=== PATIENT | male | born 1970 | race Caucasian/White ===

== ENCOUNTER 2019-07-21 16:30 | Inpatient (IN) | payer MEDICAID ==
[~2019-07-21] VITALS: Ht 175.3 cm; Wt 145.6 kg
[2019-07-21 17:06] VITALS: BP_SYST 163
--- NOTE | 2019-07-21 17:08 | NUR ---
Patient triaged and placed in waiting room. VSS and patient appears in no acute distress at this time. Accompanied by family , awaiting available bed, ER on Alert 2, unable to get a room at this time, pt ambulatory and MD notified of need for MSE, pt states he has wound on leg for one month and he has not seen a doctor, dressing placed on leg by EMT, afebrile.
[2019-07-21 18:24] LABS: BASOPHILS # (AUTO) 0.1 K/uL (0.0-0.2); BASOPHILS % (AUTO) 1.1 % (0.0-2.0); EOSINOPHILS # (AUTO) 0.2 K/uL (0.0-0.4); HEMATOCRIT 43.3 % (36-54); HEMOGLOBIN 14.5 g/dL (14.0-18.0); LYMPHOCYTES # (AUTO) 2.4 K/uL (1.0-5.5); LYMPHOCYTES % (AUTO) 20.6 % (20.5-51.5); MEAN CORPUSCULAR HEMOGLOBIN 28 pg (27-31); MEAN CORPUSCULAR HGB CONC 33 % (32-36); MEAN CORPUSCULAR VOLUME 84 fL (79.0-98.0); MONOCYTES # (AUTO) 0.7 K/uL (0.0-1.0); MONOCYTES % (AUTO) 6.4 % (1.7-9.3); NEUTROPHILS # (AUTO) 8.1 K/uL (1.8-7.7); NEUTROPHILS % (AUTO) 69.9 % (40.0-70.0); PLATELET COUNT (AUTO) 389 K/uL (130-430); RED BLOOD CELL COUNT(AUTO) 5.15 MIL/uL (4.2-6.2); RED CELL DISTRIBUTION WIDTH 13.8 % (9.0-15.0); WHITE BLOOD COUNT (AUTO) 11.6 K/uL (4.8-10.8)
[2019-07-21 18:35] LABS: CALCIUM 8.7 mg/dL (8.4-11.0); CREATININE 1.29 mg/dL (0.55-1.30); POTASSIUM 3.8 mmol/L (3.5-5.1)
[2019-07-21 18:42] LABS: TOTAL BILIRUBIN 0.6 mg/dL (0.0-1.0)
--- NOTE | 2019-07-21 19:10 | NUR ---
Labs ordered for patient, unable to get room at this time
--- NOTE | 2019-07-21 20:25 | NUR ---
Pt on stable condition, report given to David APODACA
--- NOTE | 2019-07-21 22:32 | NUR ---
Patient to ER bed 8 to gown for evaluation. Side rails up. Report given to LIZZY APODACA.
--- NOTE | 2019-07-21 22:40 | NUR ---
Pt awake, alert, oriented x4. Pt brought in by family. Pt chief complaint of wound to R lower leg. Pt has open wound with green/white drainage and black necrotic looking tissue approx 6"x8" on anterior portion of R tibia area. Pt states that he was getting onto a tour bus in [place] approx 1 month ago when he got a hematoma that filled with fluid. The patient states that the hematoma ruptured and tissue started falling out. Pt states that he tried to clean the wound with peroxide. Pt states that he did not follow up because he does not have insurance, nor a PMD. Pt states that he has no pain at this time. Wound has foul odor and drainage.
--- NOTE | 2019-07-21 22:43 | NUR ---
ER at bedside examining patient.
[2019-07-21] MEDS ORDERED: cefTRIAXone 1 GM in D5W 50 ML IV ONE (23:00)
[2019-07-21] MEDS ORDERED: cefTRIAXone 1 GM IVPB PREMIX 50 ML IV ONE (23:35)
--- NOTE | 2019-07-22 00:27 | NUR ---
Pt resting in ED bed comfortably. No acute s/s of distress. Pt denies pain at this time.
--- NOTE | 2019-07-22 01:15 | NUR ---
Pt resting in Bed. No acute distress noted.
[2019-07-22] MEDS ORDERED: ACETAMINOPHEN 325 MG TABLET PO PRN (01:45)
--- NOTE | 2019-07-22 02:30 | NUR ---
Patient will be admitted to care of . Admitted to Med/Surg unit. Will go to room 119B. Belongings list completed. Complete and up to date summary report printed. SBAR report to be given at bedside with opportunity for questions.
--- NOTE | 2019-07-22 02:54 | NUR ---
Transfer to [facility]. IV present no sign or symptom of infiltration.
--- NOTE | 2019-07-22 03:35 | NUR ---
ADMISSION NOTE Received patient from ER via eliud, received report from LIZZY APODACA. Patient admitted with diagnosis of RIGHT LEG ULCER. Patient oriented to hospital routine, call light, toileting and safety-patient verbalized understanding.
[2019-07-22 03:37] VITALS: BP_SYST 155
[2019-07-22] MEDS ORDERED: LISI40TA4 PO (03:46)
--- NOTE | 2019-07-22 04:32 | NUR ---
CONSULTATION PAGED/CALLED Reason for Consultation: INFECTED LEG ULCER Person Who was Notified: BLANKA Consulting Physician: DR. RECINOS Ordering Physician: DR. BENOIT
--- NOTE | 2019-07-22 05:00 | NUR ---
PT MEDICATED WITH DILUADID 8MG FOR ROUTINE PAIN MEDICINE . PT C/O PAIN 10/05 WILL MONITOR PAIN LEVEL . PT SLEEP BETTER THROUGH THE THE NIGHT .
--- NOTE | 2019-07-22 05:00 | NUR ---
PT SLEPT WELL THROUGH THE NIGHT . PT CONTINUED ON ANTIBIOTIC ,PT WILL TAKE A SHOWER AFTER IV MED .
--- NOTE | 2019-07-22 05:33 | NUR ---
CONSULTATION PAGED/CALLED Reason for Consultation: INFECTED LEG ULCER Person Who was Notified: GAVIN Consulting Physician: PATRICIA BEAL Ordering Physician: DR. BENOIT
[2019-07-22] MEDS: PIPERACILLIN/TAZO 3.375 GM in NS 50 ML IV SCH ×3 (06:27→17:19)
[2019-07-22] MEDS ORDERED: PIPERACILLIN/TAZOBACTAM 3.375 GM/VIAL (ZOSYN) IV ONE (06:31)
--- NOTE | 2019-07-22 06:57 | NUR ---
CLOSING NOTES PATIENT RESTING COMFORTABLY IN BED, AWAKE AND ALERT. NO SOB, NO ACUTE DISTRESS, NO COMPLAINTS OF PAIN AT THIS TIME. BED IS LOCKED, LOWEST POSITION, 2X SIDE RAILS UP, BED ALARM IS ON. CALL LIGHT IS WITHIN REACH. FALL AND SAFETY PRECAUTIONS MAINTAINED. ALL NEEDS HAVE BEEN MET DURING THIS SHIFT. WILL ENDORSE CARE TO ONCOMING DAYSHIFT NURSE.
[2019-07-22 07:31] VITALS: BP_SYST 154
--- NOTE | 2019-07-22 10:00 | NUR ---
MD rounds/wound care Seen and examined by Dr. Greene explained procedure debridement of right leg tomorrow, right leg with big necrotic wound with drainage foul smell,wash with saline pat/dry ,covered with oil emulsion dressing then abdominal pads wrap with Kerlix, kept the legs elevated pillow, patient denies any pain , discomfort comes only if he walk.
[2019-07-22] MEDS ORDERED: LISINOPRIL 20 MG TABLET PO ONE (10:45)
[2019-07-22] MEDS ORDERED: HYDROcodone/ACETAMIN 5-325 MG TAB (NORCO/ VICODIN) PO PRN (12:00)
[2019-07-22] MEDS ORDERED: HYDROcodone/ACETAMIN 10-325 MG TAB PO PRN (12:00)
[2019-07-22] MEDS ORDERED: DEXTROSE 50% JECT 50 ML DISP.SYRIN IVP PRN (12:15)
[2019-07-22] MEDS ORDERED: INSULIN REGULAR, HUMAN 100 UNITS/ML, 10 ML VIAL (humuLIN R) SUBCUT PRN (12:15)
[2019-07-22 12:29] VITALS: BP_SYST 166
--- NOTE | 2019-07-22 12:30 | NUR ---
Due antibiotic completed with out adverse reaction, right leg dressing intact, kept elevated to pillow.
[2019-07-22 13:11] LABS: PROTHROMBIN TIME 10.2 SECS (9.5-12.5)
[2019-07-22 16:21] VITALS: BP_SYST 139
--- NOTE | 2019-07-22 18:11 | NUR ---
Right leg kept elevated n dressing intact due antibiotic given, education given regarding surgery in am , wound care, antibiotic therapy, pain management, PICC LINE verbalized understanding.
[2019-07-22 19:11] LABS: BILIRUBIN,URINE NEGATIVE (NEGATIVE); BLOOD, URINE 1+ (NEGATIVE); CLARITY/URINE CLEAR (CLEAR); COLOR,URINE YELLOW (YELLOW); GLUCOSE,URINE NEGATIVE (NEGATIVE); KETONES,URINE NEGATIVE (NEGATIVE); LEUKOCYTE ESTERASE ,URINE NEGATIVE (NEGATIVE); NITRITE, URINE NEGATIVE (NEGATIVE); PROTEIN URINE NEGATIVE (NEGATIVE)
[2019-07-22 19:20] LABS: BACTERIA,URINE FEW /HPF (None Seen); MUCUS,URINE None Seen /LPF (None Seen); WBC,URINE 0-3 /HPF (0-3)
[2019-07-22 20:00] VITALS: BP_SYST 135
[2019-07-22] MEDS: LINEZOLID 300 ML IV SCH (21:09)
--- NOTE | 2019-07-22 22:00 | NUR ---
pt recieved awake alert and oriented x3 . skin warm dry and wound on the right leg intact wound drsg changes pt on antibiotics . pt stanted that his leg does not hurt him .pt recieved antibiotics , pt wanted to take a shower tonight ,but because pt had to take antibiotics ,he put it off till the morning . pt will be going for debridement . pt already signed his consent . pt will be npo after midnight . .
--- NOTE | 2019-07-22 23:45 | NUR ---
PT MEDICATED WITH DILUADID 4MG IVP FOR PAIN 10/10 . PATIENT WILL CONTINUE TO BE MONITORED FORPAIN .
--- NOTE | 2019-07-23 | NUR ---
PT RECIEVED SOME SNACKS BEFORE MIDNIGHT . PT IS NPO NOW ,FROM MIDNIGHTFOR SURGERY TOMORROW .WILL CONTINUE TO BE NPO AFTER NIDNIGHT .
[2019-07-23] MEDS: PIPERACILLIN/TAZO 3.375 GM in NS 50 ML IV SCH ×4 (00:52→23:09)
[2019-07-23 02:18] VITALS: BP_SYST 106
[2019-07-23 08:00] VITALS: BP_SYST 124
[2019-07-23 08:15] LABS: BASOPHILS # (AUTO) 0.1 K/uL (0.0-0.2); EOSINOPHILS # (AUTO) 0.3 K/uL (0.0-0.4); EOSINOPHILS % (AUTO) 2.8 % (0.0-4.0); HEMATOCRIT 39.5 % (36-54); HEMOGLOBIN 13.4 g/dL (14.0-18.0); LYMPHOCYTES # (AUTO) 2.1 K/uL (1.0-5.5); LYMPHOCYTES % (AUTO) 23.7 % (20.5-51.5); MEAN CORPUSCULAR HEMOGLOBIN 28 pg (27-31); MEAN CORPUSCULAR HGB CONC 34 % (32-36); MEAN CORPUSCULAR VOLUME 84 fL (79.0-98.0); MONOCYTES # (AUTO) 0.8 K/uL (0.0-1.0); MONOCYTES % (AUTO) 9.5 % (1.7-9.3); NEUTROPHILS # (AUTO) 5.6 K/uL (1.8-7.7); PLATELET COUNT (AUTO) 380 K/uL (130-430); RED BLOOD CELL COUNT(AUTO) 4.72 MIL/uL (4.2-6.2); RED CELL DISTRIBUTION WIDTH 13.6 % (9.0-15.0); WHITE BLOOD COUNT (AUTO) 8.9 K/uL (4.8-10.8)
[2019-07-23] MEDS: LINEZOLID 300 ML IV SCH ×2 (08:37→21:38)
[2019-07-23] MEDS: LISINOPRIL 20 MG TABLET PO SCH (08:59)
[2019-07-23 09:01] LABS: ALBUMIN 2.6 g/dL (3.4-4.8); CALCIUM 8.7 mg/dL (8.4-11.0); CREATININE 1.18 mg/dL (0.55-1.30); FREE T4 (FREE THYROXINE) 1.2 ng/dl (0.8-1.5); THYROID STIMULATING HORMONE 3.38 uIu/mL (0.36-3.74)
[2019-07-23 12:00] VITALS: BP_SYST 128
[2019-07-23] MEDS ORDERED: ONDANSETRON HCL 4 MG/2 ML VIAL IVP PRN (13:30)
[2019-07-23] MEDS ORDERED: fentaNYL CITRATE/PF 100 MCG/2 ML AMP IVP PRN ×2 (13:30)
--- NOTE | 2019-07-23 13:51 | NUR ---
OR: Patient is picked up to OR via a bed with stable condition. Wound Vac machine brought with the patient.
[2019-07-23] MEDS ORDERED: BUPIVACAINE /DEX PF 0.75% SPINAL 2 ML AMP INJ ONE (15:20)
[2019-07-23] MEDS ORDERED: NS IRRIG SOLN 1000 ML IR ONE (15:20)
[2019-07-23] MEDS ORDERED: LR 1,000 ML IV.SOLN IV ONE (15:20)
[2019-07-23] MEDS ORDERED: MIDAZOLAM HCL 5 MG/ML VIAL (VERSED) IV ONE (15:20)
[2019-07-23 16:00] VITALS: BP_SYST 121
--- NOTE | 2019-07-23 16:00 | NUR ---
Back from OR: Patient is back from OR ,S/P right leg wound debridement with wound Vac. He had Epidural block. He is alert, oriented x 4, denies pain at this time, feeling numb form waist down. Will continue monitor.
--- NOTE | 2019-07-23 16:40 | NUR ---
WOUND EVALUATION: Wound Consult received from Dr. Gurrola. Thank you, Dr. Gurrola, for the consult. Patient received in a Nay Bed with a mattress, awake, alert, and oriented. Patient is unable to turn independently. Gustavo Score is a 19. Past Medical History: Hypertension, Morbid Obesity, Obstructive Sleep Apnea. Patient reported that when he was in [place] about 1 month ago, he slipped and fell directly on his bilateral shins. Upon presentation to the ER, he was found to have large infected open hematoma. Recent Labs: WBC 8.9 (11.6 on admission), RBC 4.72, hemoglobin 13.4, hematocrit 39.5, sodium 135, BUN 15, creatinine 1.18, GFR 69, glucose 108, POC glucose 118, albumin 2.6. Microbiology: Blood culture results 2 in progress. Wound culture results in progress. MRSA screen results in progress. Intrinsic factors that delay wound healing: Hypoalbuminemia, Obstructive Sleep Apnea. Extrinsic factors that delay wound healing: Decreased mobility. Wound Assessment: 1. Right Medial Calf: Necrotic ulcer, present on admission. Wound is status post irrigation and debridement by Dr. Greene today, with Wound VAC placement. Wound VAC not removed for assessment secondary to doing so would decrease wound temperature and retard wound healing rate. Wound VAC is currently running at 125 mmHg, continuous. No leakage observed. Recommend: Cleanse wound with normal saline. Apply SurePrep to ari-wound. Apply Silver Granufoam VAC dressing to wound bed. Cover with VAC drape. Cut a small hole into Silver Granufoam dressing and attach suction attachment, connect to VAC canister. Run wound VAC at 125 mmHg, continuous. Perform wound care and change VAC q M/W/, and as needed for dressing soiling or dislodgement. Next VAC dressing change will be Saturday. Also recommend: Encourage and assist patient as needed with repositioning every 2 hours with pillow support and off-load pressure areas with pillows for pressure re-distribution. Offload, elevate and float bilateral heels with pillows. Perform skin care and monitor skin integrity Q shift.
--- NOTE | 2019-07-23 18:44 | NUR ---
Closing note: Patient is stable after surgery, able to move both legs but still feeling numb. Tolerating Regular diet well , no N/V. Right leg with wound Vac is functioning well, no drainage at this time.
--- NOTE | 2019-07-23 19:30 | NUR ---
Received report from the day RN. initial assessment done. Pt. resting with and visitors @ the bedside. Provided pt. and family privacy.
[2019-07-23 20:00] VITALS: BP_SYST 122
--- NOTE | 2019-07-23 20:00 | NUR ---
Pt. in bed resting, alert, awake, oriented x 4, able to verbalize needs and follows commands. Pt. cooperative and understands health instructions. Pt. s/p OR Surgery of the Right lower extremity Debridement. Pt. with wound @ the anterior part of the Right lower leg attached to the wound vac. continuously @ 125 mmHg. Pt. able to tolerate the wound vac machine and denies pain when assessed. Pt. verbalized that there's no pain felt down there. Pt. calm, pleasant and follows safety precautions to prevent falls. Pt. encouraged to use call-light @ the bedside. @ the bedside will stay the whole night to watch and assist her . Pt. cooperative to [place] [facility].
--- NOTE | 2019-07-23 22:00 | NUR ---
Due meds. given - see Emar. Pt. cooperative with his medications. Provided pt. and family health teachings on the use and benefits of the med. given.
--- NOTE | 2019-07-23 23:00 | NUR ---
Accucheck taken and the result is = 89 , Pt. given snacks and juices @ this time. Pt. breathing regular and unlabored and denies pain and that the Right lower leg is not hurting. Pt. provided assistance with repositioning or turn slightly to the sides for comfort with pillows supporting back, arms and underneath the legs. Pt. reenforced the blankets and keep warm. HOB UP @ 55 degrees angle and siderails up x 2-3 for safety. Call-light within reach @ the bedside.
--- NOTE | 2019-07-24 00:30 | NUR ---
Pt. calm and resting with @ the bedside. Medication IV antibiotic due @ midnight given. BURAK Piccline keep patent and intact. No s/s of IV infiltration.
[2019-07-24 01:25] VITALS: BP_SYST 127
--- NOTE | 2019-07-24 02:00 | NUR ---
Pt. sleeping calmly, awakens intermittently and assisted with toileting. Able to void using the urinal with good sufficient output of yellow darinel urine. Face and body calm. No s/s of facial grimacing. Pt. denies pain. Keep pt. clean, dry and empty the urinals each time pt. voids. Pt. returned to sleep.
--- NOTE | 2019-07-24 02:00 | NUR ---
Pt. asleep, @ the bedside sleeping @ the sofa chair. Maintained a safe, quiet and dimlighted room environment.
--- NOTE | 2019-07-24 06:30 | NUR ---
Due meds. given. Accucheck taken with result of = 89. Pt. is not feeling hungry but will wait for the mealtray. Pt. provided bedside am care. PAULIE Rubio and assisted pt. with adl's. Keep pt. safe , warm and wound vac continuously running @ 125 mmHg.
[2019-07-24] MEDS: PIPERACILLIN/TAZO 3.375 GM in NS 50 ML IV SCH ×4 (06:40→23:00)
[2019-07-24 08:00] VITALS: BP_SYST 128
--- NOTE | 2019-07-24 08:00 | NUR ---
received awake and a/o x 3 and no c/o discomfort.vss.wound vac and drsg to rt leg dry and intact and small amt drainage noted.up amb to br on own.picc line patent to rt arm continue to monitor and call santiago in place
[2019-07-24] MEDS: LINEZOLID 300 ML IV SCH ×2 (09:02→20:57)
[2019-07-24] MEDS: LISINOPRIL 20 MG TABLET PO SCH (09:03)
--- NOTE | 2019-07-24 10:47 | NUR ---
Nutrition Update Gustavo Scale 17 noted. Pt admitted for infected leg ulcer. Diet: regular BMI: 47.4 kg/m2 RD to follow per nutrition care standards.
[2019-07-24 12:00] VITALS: BP_SYST 125
--- NOTE | 2019-07-24 12:00 | NUR ---
PT REMAINS IN C/O DISCOMFORT VSSUP AMB TO BR AND WOUND VAC INTACT.CONTINUE TO MONITOR.
--- NOTE | 2019-07-24 14:35 | NUR ---
Nutrition Assessment (short note d/t high patient load) A - RD reviewed pertinent nutrition-related info via EMR (physician notes/nursing notes/labs/meds/nursing care trends/care activity). Admission Dx: Infected leg ulcer Pt also found w/ mild protein malnutrition, R leg necrotic ulcer w/ possible necrotizing fasciitis down to the bone s/p debridement 07/23/19 per physician notes PMH: HTN, AMY, morbid obesity per physician notes Current Diet Order/Nutrition Support: Regular x1 day Ht: 69"/5'9" Wt: 321#/146 kg IBW: 160#/73 kg %IBW: 200% UBW: 290#/132# %UBW: 111% BMI: 47.4 kg/m2 (obesity class III) Subjective Info: Nutrition Consult received for R leg wound. Pt also seen high risk d/t BMI greater than 40 kg/m2 and Dx of malnutrition. Pt seen resting in bed w/ wound vac to pt's R leg wound. Sanitary Plumber note 07/23/19 reviewed. Pt reported good appetite, generally eating 75% of meals. Per EMR records, 92% average PO intakes x6 meals. Pt reported use of MVI, krill oil, VIT E, D, B complex, ubiquinol, and glucosamine. Anthropometrics verified. Pt appeared to have excessive subcutaneous adipose tissue evenly distributed throughout body. Pt attested to wt gain throughout the past year d/t lack of activity and overeating. Current diet is appropriate, but pt would benefit from wound healing supplement: Yimi. Pt agreeable to try supplement. RD encouraged pt to continue to maintain good PO intakes especially of proteins and vegetable sources. Low-sodium dietary restrictions not indicated at this time for optimal nutritional intakes for wound healing. ESTIMATED NUTRITIONAL NEEDS CALORIES/DAY: 2680-8680 kcal/day (30-35 kcal/kg Adj IBW for wound healing) PROTEIN/DAY: 114-137 gm/day (1.258-1.5 gm/kg Adj IBW for wound healing) FLUID/DAY: 4.4 L/day (30 ml/kg CBW for maintenance) D - Increased nutritional needs related to metabolic demands as evidenced by estimated nutritional requirements for wound healing. Malnutrition related to morbid obesity as evidenced by BMI: 47.4 kg/m2 and 200% of IBW. I - Recommend regular diet w/ Yimi BID (pt prefers unflavored version -- ONS provides 160 kcal/day, 5 gm protein/day) M - Monitor appetite and PO intakes w/ goal of pt meeting greater than 75% of estimated nutritional needs, labs trending WNL, normal GI function, and skin integrity/wt maintenance E - Moderate risk; F/U within 3-5 days Addendum: 07/24/19 at [address] CORRECTION: Ht: 69"/5'9" Wt: 321#/146 kg IBW: 160#/73 kg %IBW: 200% Adj IBW: 200#/91 kg UBW: 290#/132# %UBW: 111% BMI: 47.4 kg/m2 (obesity class III)
--- NOTE | 2019-07-24 14:45 | NUR ---
Dietitian Recommendations * Recommend regular diet w/ Yimi BID (pt prefers unflavored version -- ONS provides 160 kcal/day, 5 gm protein/day) LP, RD Please refer to Nutrition Assessment for details.
[2019-07-24 16:00] VITALS: BP_SYST 135
--- NOTE | 2019-07-24 16:34 | NUR ---
CONTINUES WITH NO C/O DISCOMFORT TO SURGICAL WOUND VAC SITE CONTINUES WITH BLOODY DRAINAGE.ABX GIVEN ORDERED.CONTINUE TO MONITOR
--- NOTE | 2019-07-24 18:34 | NUR ---
PRN PAIN MED GIVEN FOR C/O ABD PAIN 03/07.UP AMB TO BR IVINFUSING.CONTINUE TO MONITOR
--- NOTE | 2019-07-24 19:10 | NUR ---
Received report from the day RN. Initial assessment done. Pt. resting, in room air, no s/s of sob, denies pain and comfortable. Pt. with and family @ the bedside.
[2019-07-24 20:00] VITALS: BP_SYST 131
--- NOTE | 2019-07-24 20:00 | NUR ---
Assessment done and completed. Pt. resting quietly. Cooperative with the Nursing staff. No s/s of sob. Breathing regular and unlabored. Denies pain when assessed. Provided pt. assistance with adl's and needs. Keep pt. safe, warm and comfortable in bed. Wound vac @ the Right Lower extremity running continuously @ 125 mmhg.
--- NOTE | 2019-07-24 20:57 | NUR ---
Scheduled meds. given @ around this time. Pt. given health teachings on the use and benefits of the meds. given. Pt. verbalized understanding. Pt. with BRP returned to bed and keep safe and insurance loss control surveyor bed. Call-lights within pt.'s reach.
[2019-07-24] MEDS: ENOXAPARIN SODIUM 40 MG/0.4 ML SYRINGE SUBCUT SCH (21:00)
--- NOTE | 2019-07-25 00:30 | NUR ---
Pt. sleeping and resting, awakened by Nursing staff. Scheduled meds. given -see Emar. Pt. returned to sleep.
--- NOTE | 2019-07-25 02:00 | NUR ---
Pt. calm and resting. No s/s of pain or discomfort.
--- NOTE | 2019-07-25 04:00 | NUR ---
Pt. provided assistance with adl's. BRP with minimal assist. Denies pain. Wound vac continuously running @ 125 mmhg. Pt. returned to bed safe and maintained a quiet and tranquil, dimlighted room environment.
[2019-07-25 06:30] VITALS: BP_SYST 123
[2019-07-25 06:34] LABS: BASOPHILS # (AUTO) 0.1 K/uL (0.0-0.2); EOSINOPHILS # (AUTO) 0.6 K/uL (0.0-0.4); EOSINOPHILS % (AUTO) 5.4 % (0.0-4.0); HEMATOCRIT 39.5 % (36-54); HEMOGLOBIN 13.1 g/dL (14.0-18.0); LYMPHOCYTES # (AUTO) 3.9 K/uL (1.0-5.5); MEAN CORPUSCULAR HEMOGLOBIN 28 pg (27-31); MEAN CORPUSCULAR HGB CONC 33 % (32-36); MEAN CORPUSCULAR VOLUME 85 fL (79.0-98.0); MONOCYTES % (AUTO) 8.3 % (1.7-9.3); NEUTROPHILS # (AUTO) 5.9 K/uL (1.8-7.7); NEUTROPHILS % (AUTO) 51.3 % (40.0-70.0); RED BLOOD CELL COUNT(AUTO) 4.65 MIL/uL (4.2-6.2); RED CELL DISTRIBUTION WIDTH 13.6 % (9.0-15.0); WHITE BLOOD COUNT (AUTO) 11.5 K/uL (4.8-10.8)
--- NOTE | 2019-07-25 06:45 | NUR ---
Due med. given and pt. provided bedside nsg. care. BURAK Piccline keep patent and intact. Flushed with NS and administered the IV antibiotic. Pt. resting and quiet in bed. Denies pain.
[2019-07-25] MEDS: PIPERACILLIN/TAZO 3.375 GM in NS 50 ML IV SCH ×3 (06:46→17:23)
[2019-07-25 07:16] LABS: ALBUMIN 2.5 g/dL (3.4-4.8); CALCIUM 8.6 mg/dL (8.4-11.0); CREATININE 1.41 mg/dL (0.55-1.30); POTASSIUM 4.1 mmol/L (3.5-5.1); TOTAL BILIRUBIN 0.4 mg/dL (0.0-1.0)
[2019-07-25 07:31] LABS: PLATELET COUNT (AUTO) 372 K/uL (130-430)
[2019-07-25 07:37] VITALS: BP_SYST 125
--- NOTE | 2019-07-25 08:00 | NUR ---
PATIENT A/OX4, AMBULATORY, WITH WOUND VAC. ON ROOM AIR. TOLERATED WITHOUT DISTRESS. CALL LIGHT IN PLACE, BED LOCKED AT THE LOWEST POSITION, WILL CONTINUE TO MONITOR.
[2019-07-25] MEDS: LINEZOLID 300 ML IV SCH ×2 (08:49→21:51)
[2019-07-25] MEDS: LISINOPRIL 20 MG TABLET PO SCH (08:49)
--- NOTE | 2019-07-25 09:40 | NUR ---
PATIENT IS SEEN AMBULATING TO BATHROOM. TOLERATED WITHOUT DISTRESS.
--- NOTE | 2019-07-25 12:10 | NUR ---
PATIENT IS EATING LUNCH. TOLERATED WITHOUT DISTRESS.
[2019-07-25 12:11] VITALS: BP_SYST 135
--- NOTE | 2019-07-25 15:20 | NUR ---
NEW BED SHEETS WERE CHANGED FOR THE PATIENT.
[2019-07-25 16:16] VITALS: BP_SYST 143
[2019-07-25] MEDS: 0.45% NACL 1,000 ML IV SCH (17:25)
--- NOTE | 2019-07-25 18:00 | NUR ---
PATIENT IS EATING DINNER. TOLERATED WITHOUT DISTRESS.
--- NOTE | 2019-07-25 20:00 | NUR ---
Received report from PAULIE Rubio, as transfer of care.Pt alert,oriented x4,w R leg wound vac. pt aware of being NPO post MN for US of Abdomen. pt denies pain. family at bedside.
[2019-07-25] MEDS: ENOXAPARIN SODIUM 40 MG/0.4 ML SYRINGE SUBCUT SCH (21:00)
--- NOTE | 2019-07-25 22:00 | NUR ---
Pt, and family, report pt received lovenox earlier today. CN and transferring nurse report that it was not administered. Pt and family agreed w holding dose now and restarting routine tomorrow, 07/26/19, at 2100.
[2019-07-26] MEDS: PIPERACILLIN/TAZO 3.375 GM in NS 50 ML IV SCH ×2 (00:23→05:23)
[2019-07-26 00:28] VITALS: BP_SYST 127
--- NOTE | 2019-07-26 01:02 | NUR ---
pt arrived as admission from [facility]. dx: dislocation of left hip prosthesis. pt confused. pmd: dr. gonzalez; ortho md: dr. slaughter. skin assessment (Jorge Partida RN). pt has saline lock RFA 20G started 07/26/2019. Hx includes psychosis, bipolar d/o, p. schizophrenia. Addendum: 07/26/19 at 0125 by [facility] control room helper DISREGARD ABOVE NOTE. THE ABOVE NOTE REFERS TO ANOTHER PATIENT.
[2019-07-26] MEDS: 0.45% NACL 1,000 ML IV SCH ×2 (05:22→16:54)
[2019-07-26 06:14] LABS: CALCIUM 8.7 mg/dL (8.4-11.0); CREATININE 1.51 mg/dL (0.55-1.30); POTASSIUM 3.8 mmol/L (3.5-5.1)
[2019-07-26 07:03] LABS: BASOPHILS # (AUTO) 0.1 K/uL (0.0-0.2); BASOPHILS % (AUTO) 0.8 % (0.0-2.0); EOSINOPHILS # (AUTO) 0.5 K/uL (0.0-0.4); EOSINOPHILS % (AUTO) 5.2 % (0.0-4.0); HEMATOCRIT 41.5 % (36-54); HEMOGLOBIN 13.8 g/dL (14.0-18.0); LYMPHOCYTES # (AUTO) 2.5 K/uL (1.0-5.5); LYMPHOCYTES % (AUTO) 26.2 % (20.5-51.5); MEAN CORPUSCULAR HEMOGLOBIN 28 pg (27-31); MEAN CORPUSCULAR HGB CONC 33 % (32-36); MEAN CORPUSCULAR VOLUME 85 fL (79.0-98.0); MONOCYTES # (AUTO) 0.7 K/uL (0.0-1.0); MONOCYTES % (AUTO) 7.8 % (1.7-9.3); NEUTROPHILS # (AUTO) 5.7 K/uL (1.8-7.7); PLATELET COUNT (AUTO) 409 K/uL (130-430); RED BLOOD CELL COUNT(AUTO) 4.88 MIL/uL (4.2-6.2); RED CELL DISTRIBUTION WIDTH 13.7 % (9.0-15.0); WHITE BLOOD COUNT (AUTO) 9.4 K/uL (4.8-10.8)
--- NOTE | 2019-07-26 07:15 | NUR ---
Opening Note Received bedside SBAR report from second shift supervisor RN, patient in bed resting, respirations even and unlabored on room air, no leaking noted from patients wound vac, draining well, patient informed on NPO for breakfast due to AM abdominal ultrasound, patients family at bedside, bed in low and locked position, call light in reach
[2019-07-26 08:00] VITALS: BP_SYST 139
--- NOTE | 2019-07-26 09:30 | NUR ---
RN Rounds Patient in bed resting, respirations even and unlabored on room air, patient denies any pain at this time, patients friend at bedside
[2019-07-26] MEDS: LISINOPRIL 20 MG TABLET PO SCH (09:38)
[2019-07-26] MEDS: cefTRIAXone 1 GM in D5W 50 ML IV SCH (11:16)
--- NOTE | 2019-07-26 12:54 | NUR ---
Rn Rounds Patient in bed resting, no leakage noted from wound vac, no acute distress noted, patient denies any pain
[2019-07-26 12:58] VITALS: BP_SYST 134
--- NOTE | 2019-07-26 14:30 | NUR ---
RN Rounds Patient sitting up in bed, respirations even and unlabored on room air, no acute distress noted, IV fluids running well.
--- NOTE | 2019-07-26 16:24 | NUR ---
RN Rounds Patient in bed resting, respirations even and unlabored on room air, patient denies any pain at this time, IV fluids and IV tubing replaced, PICC dressing clean, dry and intact, case resolution specialist at bedside, patients family at bedside
[2019-07-26 16:52] VITALS: BP_SYST 134
--- NOTE | 2019-07-26 18:47 | NUR ---
Closing Note Bedside SBAR report given to night shift manager RN, patient in bed resting, respirations even and unlabored on room air, fluids infusing well via PICC line, PICC line dressing clean, dry and intact, no leak from wound vac noted, bed in low and locked position, call light in reach. Addendum: 07/26/19 at 1856 by Gerardo Medina RN Add to above note Will continue to monitor, will endorse care to night shift manager RN.
--- NOTE | 2019-07-26 19:30 | NUR ---
OPENING NOTES Patient is resting, no signs of distress observed. Wound vac in place, draining well, plastic in place. IVF running to Right upper arm picc, dressings c/d/i. Will continue to monitor.
[2019-07-26 20:00] VITALS: BP_SYST 136
[2019-07-26] MEDS: CARVEDILOL 6.25 MG TABLET (COREG) PO SCH (21:00)
[2019-07-26] MEDS: ENOXAPARIN SODIUM 40 MG/0.4 ML SYRINGE SUBCUT SCH (21:28)
--- NOTE | 2019-07-26 21:40 | NUR ---
Patient refuses Carvidilol, as patient remembers MD had mentioned he would be discontinuing Lisinopril and patient has never taken Carvidilol. Blood pressure s 131/68 and patient has no symptoms of high blood pressure. Patient would like to speak to MD before taking Carvidilol. Will continue to monitor blood pressure and endorse to morning shift.
[2019-07-27] VITALS: BP_SYST 135
[2019-07-27] MEDS: 0.45% NACL 1,000 ML IV SCH ×2 (02:04→08:00)
--- NOTE | 2019-07-27 06:38 | NUR ---
CLOSING NOTES Patient is resting, eyes closed, easily awoken. PICC at right upper arm patent, dressings c/d/i, saline lock. No respiratory distress or pain throughout shift. Call light within reach, bed alarm refused throughout shift, and only one rail raised throughout shift. Bed at lowest position. All needs met throughout shift. Will endorse care to oncoming shift.
[2019-07-27 07:11] LABS: CALCIUM 8.5 mg/dL (8.4-11.0); CREATININE 1.29 mg/dL (0.55-1.30); POTASSIUM 3.9 mmol/L (3.5-5.1)
--- NOTE | 2019-07-27 07:30 | NUR ---
opening note patient is resting in bed, visitor at the bedside, alert and oriented, no signs of distress at this time, educated family development extension specialist light system and plan of care, patient verbalized understanding, no needs addressed at this time, PICC line dressing in tact with 1/2NS running at 100ml/hr, patient tolerating well, wound vac on, bed in lowest position, two side rails up, call light within reach, patient refuses bed alarm on and to raise side rail next to his right leg, educated on the safety benefits of them, patient still refused them, fall/safety precautions in place.
[2019-07-27 08:03] VITALS: BP_SYST 146
[2019-07-27] MEDS: CARVEDILOL 6.25 MG TABLET (COREG) PO SCH ×2 (08:07→22:11)
[2019-07-27] MEDS: cefTRIAXone 1 GM in D5W 50 ML IV SCH (10:07)
--- NOTE | 2019-07-27 10:09 | NUR ---
rocephin assisted patient to the bathroom and back to bed, patient walked steady, educated on medication use and side effects, patient verbalized understanding, tolerating well, no other needs addressed at this time, fall/safety precautions in place.
--- NOTE | 2019-07-27 12:21 | NUR ---
rounds patient is resting in bed, family in the room, updated them on plan of care, patient verbalized understanding, no signs of distress at this time, patient tolerating well, fall/safety precautions in place. Addendum: 07/27/19 at 1314 by Kandy Talamantes RN assisted patient to bathroom
[2019-07-27 12:35] VITALS: BP_SYST 143
--- NOTE | 2019-07-27 14:30 | NUR ---
rounds patient is resting in bed, family in the room, IVF was discontinued, no signs of distress at this time, patient tolerating well, fall/safety precautions in place.
[2019-07-27 16:26] VITALS: BP_SYST 136
--- NOTE | 2019-07-27 16:30 | NUR ---
wound care patient is resting in bed, wound care and wound vac change done with kiss mixer, patient tolerated well, no signs of distress at this time, patient tolerating well, fall/safety precautions in place.
--- NOTE | 2019-07-27 16:56 | NUR ---
WOUND RE-EVALUATION: Patient received in a Prairie Bed with an IsoFlex MARCO mattress, awake, alert, and oriented. Patient is able to turn in bed independently. Gustavo Score is an 18. Past Medical History: Hypertension, Morbid Obesity, Obstructive Sleep Apnea. Patient reported that when he was in [place] about 1 month ago, he slipped and fell directly on his bilateral shins. Upon presentation to the ER, he was found to have large infected open hematoma. Microbiology: Blood culture results 2 negative. Wound culture results positive for Proteus Mirabilis. MRSA screen results negative. Intrinsic factors that delay wound healing: Hypoalbuminemia, Obstructive Sleep Apnea. Extrinsic factors that delay wound healing: Decreased mobility. Wound Assessment: 1. Right Medial Calf: Necrotic ulcer, present on admission. Wound is status post irrigation and debridement by Dr. Greene with Wound VAC placement. Wound bed has 65% pink tissue, 25% red tissue, 10% black tissue, 5% yellow tissue, no eschar present. No odor, small sanguineous drainage. Periwound intact. Wound measures 14.5 cm x 11.0 cm x 0.9 cm. Recommend continue: Cleanse wound with normal saline. Apply SurePrep to ari-wound. Apply Silver Granufoam VAC dressing to wound bed. Cover with VAC drape. Cut a small hole into Silver Granufoam dressing and attach suction attachment, connect to VAC canister. Run wound VAC at 125 mmHg, continuous. Perform wound care and change VAC q M/W/F, and as needed for dressing soiling or dislodgement. Also recommend continue: Encourage and assist patient as needed with repositioning every 2 hours with pillow support and off-load pressure areas with pillows for pressure re-distribution. Offload, elevate and float bilateral heels with pillows. Perform skin care and monitor skin integrity Q shift. Encourage ankle pumps, at least 10 per hour while awake.
--- NOTE | 2019-07-27 18:52 | NUR ---
closing note patient is sitting in chair, visitor at the bedside, alert and oriented, no signs of distress at this time, no needs addressed at this time, PICC line dressing in tact, wound vac on, bed in lowest position, one side rail up (this is what patient requested he refuses any more side rails up), call light within reach, patient refuses bed alarm on and to raise side rail next to his right leg, educated on the safety benefits of them, patient still refused them, fall/safety precautions in place, will endorse report to noc shift nurse to continue with care, patient ambulates to the bathroom.
--- NOTE | 2019-07-27 19:30 | NUR ---
OPENING NOTES Patient is resting, no signs of acute respiratory distress observed, family at bedside. IV site patent, saline lock, dressings c/d/i. Wound vac attached to patient, draining well, red drainage noted. Call light within reach, bed alarm refused after patient is educated on risks and benefits. Will continue to monitor.
[2019-07-27 20:00] VITALS: BP_SYST 138
[2019-07-27] MEDS: ENOXAPARIN SODIUM 40 MG/0.4 ML SYRINGE SUBCUT SCH (22:10)
[2019-07-28] VITALS: BP_SYST 119
[2019-07-28 01:06] LABS: % FREE PSA 16.7 % (.); FREE PSA 0.72 ng/mL
--- NOTE | 2019-07-28 07:30 | NUR ---
CLOSING NOTES Patient is resting, no signs of acute respiratory distress observed. IV site patent, saline lock, dressings c/d/i. Wound vac attached to patient, draining well, red drainage noted. Call light within reach, bed alarm refused after patient is educated on risks and benefits. All needs met throughout shift. Will endorse to oncoming shift.
[2019-07-28 08:00] VITALS: BP_SYST 139
--- NOTE | 2019-07-28 08:00 | NUR ---
INITIAL NOTES- IN BED AWAKE. DENIES ANY PAIN OR DISCOMFORT. WOUND VAC DRAINING WELL, NO LEAKING NOTED. UPDATE PLAN OF CARE. CALL LIGHT WITHIN REACH. WILL MONITOR.
[2019-07-28] MEDS: CARVEDILOL 6.25 MG TABLET (COREG) PO SCH ×2 (08:30→20:25)
--- NOTE | 2019-07-28 08:39 | NUR ---
CLOSING NOTES Patient is resting, no signs of acute respiratory distress observed. IV site patent, saline lock, dressings c/d/i. Wound vac attached to patient, draining well, red drainage noted. Call light within reach, bed alarm refused after patient is educated on risks and benefits. All needs met throughout shift. Will endorse to oncoming shift. Addendum: 07/28/19 at 0841 by Sophie Aguirre RN wrong time- please disregard
--- NOTE | 2019-07-28 08:57 | NUR ---
DC Planning: Barriers for discharge: Pt. lives alone in 2nd floor apt. He needs wound care and wound vac set up. There is no accepting snf or HH due to pt insurance coverage and pt does not have fund to pay for copayment at snf or HH services. Per dr. Gurrola, the pt will need 6 weeks of IV abx and wound vac.
--- NOTE | 2019-07-28 11:00 | NUR ---
Sitting in the chair, denies any pain or discomfort. enc to call for help as needed.
[2019-07-28] MEDS: cefTRIAXone 1 GM in D5W 50 ML IV SCH (11:03)
[2019-07-28 12:15] VITALS: BP_SYST 125
[2019-07-28 16:10] VITALS: BP_SYST 131
--- NOTE | 2019-07-28 16:37 | NUR ---
Notes- Resting in bed, family at bedside. Denies any pain or discomfort. N distress noted.
--- NOTE | 2019-07-28 16:56 | NUR ---
DC PLANNING: FAXED CLINICAL PACKET TO MICHELLE MARTINEZ [facility] @
--- NOTE | 2019-07-28 18:21 | NUR ---
Notes- Sitting in the chair eating dinner. denies any pain or discomfort. wound vac at 150cc level. had 50cc output this shift. No change in assessment. all needs meet. will endorse
--- NOTE | 2019-07-28 19:45 | NUR ---
OPENING NOTES Received bedside report from morning shift RN. Patient is resting in bed, awake, alert, oriented x 3, breathing evenly and nonlabored. Patient has a PICC line on the BURAK. Educated patient on plan of care, fall/safety precautions, and call light system, patient stated understanding with return demonstration. Bed is locked, armed, and at lowest position. Will continue to monitor.
[2019-07-28 20:05] VITALS: BP_SYST 137
[2019-07-28] MEDS: ENOXAPARIN SODIUM 40 MG/0.4 ML SYRINGE SUBCUT SCH (20:26)
--- NOTE | 2019-07-28 20:30 | NUR ---
MEDICATIONS/ROUNDS Patient is resting in bed, awake, breathing evenly and nonlabored, friend at bedside. Educated patient on medications, patient stated understanding. Administered medications to patient, patient tolerated it well. No s/s of distress at this time, no other needs at this time. Fall/safety precautions. Will continue to monitor.
--- NOTE | 2019-07-28 22:04 | NUR ---
ROUNDS Patient resting quietly in bed, denies any pain or discomfort at this time, due medications administered earlier, call light remains within reach, safety measures in place, will monitor.
[2019-07-29 00:05] VITALS: BP_SYST 122
--- NOTE | 2019-07-29 00:05 | NUR ---
ROUNDS Patient is resting in bed, awake, breathing evenly and nonlabored. Vital signs stable. No s/s of distress at this time, no other needs at this time. Fall/safety precautions. Will continue to monitor.
--- NOTE | 2019-07-29 02:13 | NUR ---
ROUNDS Patient is resting in bed, eyes closed breathing evenly and nonlabored. No s/s of distress at this time, no other needs at this time. Fall/safety precautions. Will continue to monitor.
--- NOTE | 2019-07-29 04:15 | NUR ---
ROUNDS Patient is resting in bed, eyes closed breathing evenly and nonlabored. No s/s of distress at this time, no other needs at this time. Fall/safety precautions.
--- NOTE | 2019-07-29 06:17 | NUR ---
CLOSING NOTES Patient is resting in bed, eyes closed, breathing evenly and nonlabored. Will endorse care to morning shift RN. Fall/safety precautions.
--- NOTE | 2019-07-29 07:36 | NUR ---
OPENING NOTE Patient resting in the bed. No acute distress. AAO x 4. Denied of pain. Skin warm and dry to touch. PICC line intact to BURAK, no redness, no swelling, covered with clean and dry transparent dressing. Wound vac intact to right rodríguez, drain light brown drainage. Discussed the safety issue, use call light when needs help, and plan of care, verbally understanding. Safety measure maintained. Call light within reached. Bed locked in low position, side rails up. Refused bed alarm, risk and benefit explained, verbally understanding. Will continue to monitor.
[2019-07-29 07:42] VITALS: BP_SYST 123
[2019-07-29 08:37] LABS: BASOPHILS # (AUTO) 0.1 K/uL (0.0-0.2); BASOPHILS % (AUTO) 0.7 % (0.0-2.0); EOSINOPHILS # (AUTO) 0.5 K/uL (0.0-0.4); EOSINOPHILS % (AUTO) 5.1 % (0.0-4.0); HEMOGLOBIN 14.8 g/dL (14.0-18.0); LYMPHOCYTES # (AUTO) 2.9 K/uL (1.0-5.5); LYMPHOCYTES % (AUTO) 27.4 % (20.5-51.5); MEAN CORPUSCULAR HEMOGLOBIN 28 pg (27-31); MEAN CORPUSCULAR HGB CONC 34 % (32-36); MEAN CORPUSCULAR VOLUME 84 fL (79.0-98.0); MONOCYTES # (AUTO) 0.8 K/uL (0.0-1.0); MONOCYTES % (AUTO) 7.6 % (1.7-9.3); NEUTROPHILS # (AUTO) 6.2 K/uL (1.8-7.7); NEUTROPHILS % (AUTO) 59.2 % (40.0-70.0); PLATELET COUNT (AUTO) 450 K/uL (130-430); RED BLOOD CELL COUNT(AUTO) 5.24 MIL/uL (4.2-6.2); RED CELL DISTRIBUTION WIDTH 13.6 % (9.0-15.0); WHITE BLOOD COUNT (AUTO) 10.5 K/uL (4.8-10.8)
[2019-07-29] MEDS: CARVEDILOL 6.25 MG TABLET (COREG) PO SCH ×2 (08:40→20:08)
--- NOTE | 2019-07-29 08:40 | NUR ---
AM SCHEDULE MED GIVEN Patient tolerated PO med well. Offer the wound dressing change but the patient wanted to do in the afternoon. Safety measure maintained. Call light within reached. Bed locked in low position, side rails up. Continue to monitor.
[2019-07-29 09:11] LABS: CALCIUM 9.2 mg/dL (8.4-11.0); CREATININE 1.26 mg/dL (0.55-1.30); POTASSIUM 4.1 mmol/L (3.5-5.1)
[2019-07-29] MEDS: cefTRIAXone 1 GM in D5W 50 ML IV SCH (10:39)
--- NOTE | 2019-07-29 10:40 | NUR ---
ROCEPHIN HANG Patient sitting in the chair. No acute distress. PICC line intact, Rocephin hang. Safety measure maintained. Continue to monitor.
[2019-07-29 12:00] VITALS: BP_SYST 128
--- NOTE | 2019-07-29 12:50 | NUR ---
PICC LINE DRESSING CHANGED PICC line dressing changed, aseptic technique used. Patient tolerated procedure well. Safety measure maintained. Bed locked in low position, side rails up. Call light within reached. Continue to monitor.
--- NOTE | 2019-07-29 13:40 | NUR ---
WOUND VAC DRESSING CHANGED Reported by the patient accidental stepped on the wound vac tubing and disconnected to the wound. Wound vac dressing changed. Patient tolerated procedure well. Safety measure maintained. Call light within reached. Continue to monitor.
[2019-07-29] MEDS ORDERED: metroNIDAZOLE 500 MG TABLET PO ONE (15:00)
--- NOTE | 2019-07-29 15:35 | NUR ---
ROUND Patient resting in the bed. No acute distress. Family at bedside. Right leg intact to wound vac with dressing. PICC line intact. Safety measure maintained. Call light within reached. Bed locked in low position, side rails up. Continue to monitor.
--- NOTE | 2019-07-29 15:47 | NUR ---
Nutrition F/U A - RD reviewed pertinent nutrition-related info via EMR (physician notes/nursing notes/labs/meds/nursing care trends/care activity). Admission Dx: Infected leg ulcer Pt also found w/ mild protein malnutrition, R leg necrotic ulcer w/ possible necrotizing fasciitis down to the bone s/p debridement 07/23/19 per physician notes PMH: HTN, AMY, morbid obesity per physician notes Current Diet Order/Nutrition Support: Regular, Yimi BID x5 days Ht: 69"/5'9" Wt: 321#/146 kg IBW: 160#/73 kg %IBW: 200% UBW: 290#/132# %UBW: 111% BMI: 47.4 kg/m2 (obesity class III) Pertinent Medical Info: Incision and drainage of R leg wound 07/23/19 Subjective Info: Pt seen resting in bedside chair w/ multiple family members at bedside. Pt reported good appetite, tolerating diet well, and also enjoying Yimi supplementation. RD encouraged pt to continue to eat well for proper nutrition and wound healing. RD offered 2 gm Na diet for Hx of HTN -- pt agreeable to modify regular diet to 2 gm Na diet, as well as continue Yimi BID supplements. RD also provided HTN, wt loss, and high protein MNT. Please refer to interdisciplinary teaching record for details. ESTIMATED NUTRITIONAL NEEDS CALORIES/DAY: 1854-1256 kcal/day (30-35 kcal/kg Adj IBW for wound healing) PROTEIN/DAY: 114-137 gm/day (1.258-1.5 gm/kg Adj IBW for wound healing) FLUID/DAY: 4.4 L/day (30 ml/kg CBW for maintenance) D - Increased nutritional needs related to metabolic demands as evidenced by estimated nutritional requirements for wound healing. Malnutrition related to morbid obesity as evidenced by BMI: 47.4 kg/m2 and 200% of IBW. *ongoing* I - Recommend 2 gm Na diet w/ Yimi BID (pt prefers unflavored version -- ONS provides 160 kcal/day, 5 gm protein/day) M - Monitor appetite and PO intakes w/ goal of pt meeting greater than 75% of estimated nutritional needs, labs trending WNL, normal GI function, and skin integrity/wt maintenance E - Low risk; F/U within 7 days
--- NOTE | 2019-07-29 15:50 | NUR ---
Dietitian Recommendations * Recommend 2 gm Na diet w/ Yimi BID (pt prefers unflavored version -- ONS provides 160 kcal/day, 5 gm protein/day LP, RD Please refer to Nutrition F/U for details.
[2019-07-29 16:00] VITALS: BP_SYST 132
--- NOTE | 2019-07-29 16:52 | NUR ---
ROUND Patient sitting in the chair next to bed. No acute distress. Family at bedside. Safety measure maintained. Right leg intact to wound vac with dressing. Continue to monitor.
--- NOTE | 2019-07-29 18:55 | NUR ---
CLOSING NOTE Patient resting in the bed. No acute distress. Denied of pain. Skin warm and dry to touch. PICC line intact to BURAK, no redness, no swelling, covered with clean and dry transparent dressing. Wound vac intact to right rodríguez, drain light brown drainage. All needs met. Safety measure maintained. Call light within reached. Bed locked in low position, side rails up. Refused bed alarm, risk and benefit explained, verbally understanding. Will endorse to night nurse.
--- NOTE | 2019-07-29 19:50 | NUR ---
OPENING NOTES Received bedside report from morning shift RN. Patient is resting in bed, awake, alert, oriented x 4, breathing evenly and nonlabored, friend at the bedside. Patient has a PICC line on the BURAK. Patient has a wound vac drain. Educated patient on plan of care, fall/safety precautions, and call light system, patient stated understanding with return demonstration. Bed is locked, armed, and at lowest position. Will continue to monitor.
[2019-07-29 20:00] VITALS: BP_SYST 127
[2019-07-29] MEDS: ENOXAPARIN SODIUM 40 MG/0.4 ML SYRINGE SUBCUT SCH (20:11)
[2019-07-29] MEDS: metroNIDAZOLE 500 MG TABLET PO SCH (21:28)
--- NOTE | 2019-07-29 22:00 | NUR ---
RN ROUNDS Patient awake, denies any pain or discomfort, due medications administered, educated on side effects of each medication, patient verbalized understanding.
[2019-07-30 00:15] VITALS: BP_SYST 110
--- NOTE | 2019-07-30 00:25 | NUR ---
RN ROUNDS Patient resting quietly in bed, denies any pain or discomfort, vital signs stable, call light within reach, safety measures in place, will monitor.
--- NOTE | 2019-07-30 02:15 | NUR ---
RN ROUNDS Patient resting quietly in bed, breathing is even and unlabored, call light within reach, safety measures in place, will monitor.
--- NOTE | 2019-07-30 04:30 | NUR ---
RN ROUNDS Patient asleep, breathing is even and unlabored, call light remains within reach, safety measures in place, will monitor.
[2019-07-30] MEDS: metroNIDAZOLE 500 MG TABLET PO SCH ×3 (05:22→21:29)
--- NOTE | 2019-07-30 06:34 | NUR ---
CLOSING NOTE Patient asleep, breathing is even and unlabored, due medications administered earlier, Wound vac ongoing at 125mmhg, patient needs attended to, call light remains within reach, safety measures maintained, will continue to monitor until report given to am nurse.
--- NOTE | 2019-07-30 07:32 | NUR ---
OPENING NOTE Patient asleep in the bed at this time. No acute distress. Skin warm and dry to touch. PICC line intact to BURAK, no redness, no swelling, covered with clean and dry transparent dressing. Wound vac intact to right rodríguez, drain brown drainage. Safety measure maintained. Call light within reached. Bed locked in low position, side rails up. Will continue to monitor.
[2019-07-30 07:50] VITALS: BP_SYST 123
[2019-07-30] MEDS: cefTRIAXone 1 GM in D5W 50 ML IV SCH (10:06)
[2019-07-30] MEDS: CARVEDILOL 6.25 MG TABLET (COREG) PO SCH ×2 (10:06→21:26)
--- NOTE | 2019-07-30 10:08 | NUR ---
AM SCHEDULE MED GIVEN Patient sitting in the chair. No acute distress. Denied of pain. Right leg wound intact to wound vac. PICC line intact, Rocephin hang at this time. Safety measure maintained. Continue to monitor.
[2019-07-30 10:56] LABS: PROSTATE SPECIFIC AG TOTAL 4.3 ng/mL (0.0-4.0)
[2019-07-30 12:00] VITALS: BP_SYST 121
--- NOTE | 2019-07-30 12:10 | NUR ---
SEEN AND EXAMINED BY [facility].
--- NOTE | 2019-07-30 12:15 | NUR ---
Discharge Planning: DCP fax pt referral to [facility] (f [phone] p [phone]) DCP to follow up Addendum: 07/30/19 at 1518 by Alia Boss DP [facility] p [phone]) accepted pt. need IV medication DC order Drug, Dosage and Duration Addendum: 07/30/19 at 1614 by Alia Boss DP [facility] (f [phone] p [phone]) will contact [facility] for wound vac, DCP faxed [facility] (f [phone] p [phone]) order for IV medication. DCP to follow up.
--- NOTE | 2019-07-30 14:22 | NUR ---
ROUND Patient resting in the bed. No acute distress. Right lower leg wound intact to wound vac, drain brown color of drainage. Safety measure maintained. Call light within reached. Continue to monitor.
[2019-07-30 16:00] VITALS: BP_SYST 122
--- NOTE | 2019-07-30 16:30 | NUR ---
ROUND Patient sitting in the chair next to bed. No acute distress. Right leg intact to wound vac with dressing. Family at bedside. Safety measure maintained. Continue to monitor.
--- NOTE | 2019-07-30 17:55 | NUR ---
CALLED [facility] Spoke with Gerardo (construction cost estimator) regarding the discharge. Per Gerardo the wound vac supplies and IV medication not set up yet. Will follow up tomorrow, the patient not to discharge the set up ready.
--- NOTE | 2019-07-30 18:10 | NUR ---
INFORMED TO PATIENT NOT TO DISCHARGE TODAY AND PATIENT WANTS TO SENT THE SUPPLY TO [address] [place] [id number] THAT THE PATIENT WILL BE LIVE AFTER DISCHARGE.
--- NOTE | 2019-07-30 18:58 | NUR ---
CLOSING NOTE Patient resting in the bed. No acute distress. Denied of pain. Skin warm and dry to touch. PICC line intact to BURAK, no redness, no swelling, covered with clean and dry transparent dressing. Wound vac intact to right rodríguez, drain light brown drainage. All needs met. Safety measure maintained. Call light within reached. Bed locked in low position, side rails up. Will endorse to night nurse.
[2019-07-30 20:00] VITALS: BP_SYST 111
--- NOTE | 2019-07-30 20:00 | NUR ---
OPENING NOTE: RECIEVED REPORT @ START OF SHIFT, A/O/X/4, RESPIRATIONS EVEN AND UNLABORED, ROOM AIR, WOUND VAC TO RIGHT LEG, DRAINAGE RED/BROWNISH, PICC LINE IN BURAK PATENT AND INTACT, DRSG C/D/I,FAMILY @ BEDSIDE, PATIENT RESTING COMFORTABLY IN BEDSIDE CHAIR, DENIES PAIN, TOLERATING PO FLUIDS WELL AND EVENING SUPPER 100 %, BED IN LOW POSITION CALL LIGHT WITHIN REACH, WILL CONTINUE TO MONITOR FOR ANY S/S OF DISTRESS.
[2019-07-30] MEDS: ENOXAPARIN SODIUM 40 MG/0.4 ML SYRINGE SUBCUT SCH (21:27)
--- NOTE | 2019-07-31 | NUR ---
RESTING QUITLY IN BED WITH EYES CLOSED, WILL CONTINUE TO MONITOR, WOUND VAC FUNCTIONING PROPERLY TO RIGHT LEG.
[2019-07-31 01:07] VITALS: BP_SYST 112
--- NOTE | 2019-07-31 04:00 | NUR ---
NO NOTED CHANGES IN PRESENT CONDITION, RESTING QUIETLY IN BED WITH EYES CLOSED.
[2019-07-31] MEDS: metroNIDAZOLE 500 MG TABLET PO SCH ×2 (06:37→15:28)
[2019-07-31] MEDS: CARVEDILOL 6.25 MG TABLET (COREG) PO SCH (10:19)
[2019-07-31] MEDS: cefTRIAXone 1 GM in D5W 50 ML IV SCH (10:20)
--- NOTE | 2019-07-31 10:57 | NUR ---
DC Planning: Maxwell López @ [facility] agency, the IV abx and wound vac is to be set up and delivered to pt's home between 4-10 pm today. >> PAULIE Moran made aware that the pt can be discharged today. RN please give wound care and dressing change instruction/precaution upon discharge.
--- NOTE | 2019-07-31 11:52 | NUR ---
Wound Care Discharge Planning: Wound care orders for right medial calf wound upon discharge to home/facility: 1. Remove wound VAC and VAC dressing. 2. Cleanse wound with normal saline. 3. Apply sure prep to periwound. 4. Apply Hydrogel to wound bed. 5. Pack wound with Tenderwet dressings. 6. Cover wound with nonadhesive foam dressings. 7. Wrap loosely with Ratna wrap.
[2019-07-31 12:39] VITALS: BP_SYST 117
[2019-07-31] MEDS ORDERED: FLA250 PO (12:57)
[2019-07-31] MEDS ORDERED: MULT-976 PO (12:58)
[2019-07-31] MEDS ORDERED: CARV6.2554 PO (12:58)
--- NOTE | 2019-07-31 14:34 | NUR ---
ROUNDS IN THE ROOM WITH DR BENOIT DURING ROUNDS. PATIENT WILL BE DISCHARGE TODAY. MD INFORMED PATIENT OF ELEVATED PSA LEVEL AND THE NEED GET A REFERRAL FROM HIS PCP TO FOLLOW UP WITH A UROLOGIST IN A MONTH TIME. PATIENT WAS GIVEN THE RESULT OF THE PSA REPORT. PATIENT VERBALIZED UNDERSTANDING OF INSTRUCTION GIVEN BY
--- NOTE | 2019-07-31 14:37 | NUR ---
WOUND CARE VAC TURNED OFF AND DISCONTINUED. PATIENT WOUND IS 98-99 % PINK, 14X11.5. CLEANSE WITH NORMAL SALINE, HYDROGEL APPLIED TO WOUND BED, TENDERWET PUT IN PALCE, COVERED WITH FOAM DRESSING AND SECURED LOOSELY WITH CLING WRAP, WOUND CARE TAUGHT TO PATIENT, SUPPLIES PROVIDED. PATIENT TOLERATED DRESSING CHANGE WELL
[2019-07-31 16:00] VITALS: BP_SYST 117
== END 2019-07-31 16:50 | disposition home health service (06) | DRG 364 ==
LOC: SED 16:30 → SMU 07-22 01:43
PROVIDERS: ADMIT Internal Medicine; ATTEND Internal Medicine
PROC: 02HV33Z Insertion of Infusion Device into Superior Vena Cava, Percutaneous Approach (ICD-10-PCS; 2019-07-22)
PROC: B548ZZA Ultrasonography of Superior Vena Cava, Guidance (ICD-10-PCS; 2019-07-22)
PROC: 0QBG0ZZ Excision of Right Tibia, Open Approach (ICD-10-PCS; principal; 2019-07-23 14:15)
DX: L03.115 Cellulitis of right lower limb (principal); N17.0 Acute kidney failure with tubular necrosis; M72.6 Necrotizing fasciitis; I96 Gangrene, not elsewhere classified; E66.01 Morbid (severe) obesity due to excess calories; E44.1 Mild protein-calorie malnutrition; K76.0 Fatty (change of) liver, not elsewhere classified; L97.914 Non-pressure chronic ulcer of unspecified part of right lower leg with necrosis of bone; G47.33 Obstructive sleep apnea (adult) (pediatric); I10 Essential (primary) hypertension; S80.11XA Contusion of right lower leg, initial encounter; W18.39XA Other fall on same level, initial encounter; B96.4 Proteus (mirabilis) (morganii) as the cause of diseases classified elsewhere; Z68.42 Body mass index [BMI] 45.0-49.9, adult; Z79.899 Other long term (current) drug therapy; Y93.89 Activity, other specified; Y92.89 Other specified places as the place of occurrence of the external cause; Y99.8 Other external cause status
CPT/HCPCS: 36415; 71045; 73590-TC; 76700-TC; 80048; 80053; 81000-TC; 82962; 83036; 83605; 84153; 84439; 84443-TC; 85025; 85610-TC; 85730-TC; 87040-TC; 87070; 87070-TC; 87075-TC; 87081; 87186-TC; 88304; 93005; 93970; 96365; 99285; A6550; C1751; J0696; J1650; J1815; J2020; J2250; J2543; J3490; J7030; J7050; J7060; J7120

== ENCOUNTER 2019-08-24 20:30 | Inpatient (IN) | payer MEDICAID ==
[~2019-08-24] VITALS: Ht 175.3 cm; Wt 136.1 kg
[2019-08-24 20:30] VITALS: BP_SYST 158
[~2019-08-24 20:30] MED LIST: CARV6.2554 PO; FLA250 PO; LISI40TA4 PO; MULT-976 PO
[2019-08-24] MEDS ORDERED: AMOX-423 PO (20:44)
[2019-08-24] MEDS ORDERED: METR500T PO (20:44)
[2019-08-24] MEDS ORDERED: NACL 0.9% 1,000 ML IV ONE (20:54)
[2019-08-24] MEDS ORDERED: ASPIRIN 81 MG TAB.CHEW PO ONE (21:00)
[2019-08-24 21:46] LABS: BASOPHILS # (AUTO) 0.1 K/uL (0.0-0.2); BASOPHILS % (AUTO) 0.4 % (0.0-2.0); EOSINOPHILS # (AUTO) 0.2 K/uL (0.0-0.4); EOSINOPHILS % (AUTO) 1.4 % (0.0-4.0); HEMATOCRIT 44.4 % (36-54); HEMOGLOBIN 14.6 g/dL (14.0-18.0); LYMPHOCYTES # (AUTO) 1.6 K/uL (1.0-5.5); LYMPHOCYTES % (AUTO) 10.3 % (20.5-51.5); MEAN CORPUSCULAR HEMOGLOBIN 28 pg (27-31); MEAN CORPUSCULAR HGB CONC 33 % (32-36); MEAN CORPUSCULAR VOLUME 84 fL (79.0-98.0); MONOCYTES # (AUTO) 0.9 K/uL (0.0-1.0); MONOCYTES % (AUTO) 5.9 % (1.7-9.3); NEUTROPHILS # (AUTO) 12.7 K/uL (1.8-7.7); PLATELET COUNT (AUTO) 229 K/uL (130-430); RED BLOOD CELL COUNT(AUTO) 5.28 MIL/uL (4.2-6.2); WHITE BLOOD COUNT (AUTO) 15.5 K/uL (4.8-10.8)
[2019-08-24 22:09] LABS: INR 1.2 (0.80-1.20); PROTHROMBIN TIME 11.7 SECS (9.5-12.5)
[2019-08-24 22:32] LABS: CALCIUM 8.3 mg/dL (8.4-11.0); CREATININE 1.67 mg/dL (0.55-1.30); POTASSIUM 3.6 mmol/L (3.5-5.1)
[2019-08-24 22:38] LABS: ALBUMIN 2.6 g/dL (3.4-4.8); TOTAL BILIRUBIN 0.4 mg/dL (0.0-1.0)
[2019-08-25] MEDS ORDERED: ENOXAPARIN SODIUM 120 MG/0.8 ML SYRINGE SUBCUT ONE (00:30)
[2019-08-25 02:29] VITALS: BP_SYST 108
[2019-08-25 08:20] VITALS: BP_SYST 97
[2019-08-25] MEDS ORDERED: ASPIRIN 81 MG TAB.CHEW PO ONE (09:00)
[2019-08-25] MEDS: CARVEDILOL 6.25 MG TABLET (COREG) PO SCH ×2 (09:00→21:39)
[2019-08-25] MEDS ORDERED: ASPIRIN 325 MG TABLET PO SCH (09:00)
[2019-08-25] MEDS ORDERED: AMOXICILLIN/CLAVULANATE POTASSIUM 875 MG TABLET PO ONE (09:15)
[2019-08-25] MEDS ORDERED: ENOXAPARIN SODIUM 100 MG/ML SYRINGE SQ SCH ×2 (10:00→21:00)
[2019-08-25] MEDS ORDERED: NACL 0.9% 1,000 ML IV ONE (10:00)
[2019-08-25] MEDS ORDERED: ENOXAPARIN SODIUM 40 MG/0.4 ML SYRINGE SUBCUT SCH (10:00)
[2019-08-25] MEDS ORDERED: ENOXAPARIN SODIUM 100 MG/ML SYRINGE SQ ONE (12:15)
[2019-08-25 12:25] VITALS: BP_SYST 109
[2019-08-25] MEDS: metroNIDAZOLE 500 MG TABLET PO SCH ×2 (13:14→21:38)
[2019-08-25] MEDS ORDERED: IOHEXOL 350 mgI/mL, 150 ML INFUS..BTL IV ONE (13:54)
[2019-08-25] MEDS: NACL 0.9% 1,000 ML IV SCH (16:22)
[2019-08-25 16:42] VITALS: BP_SYST 112
[2019-08-25 20:00] VITALS: BP_SYST 126
[2019-08-25] MEDS: AMOXICILLIN/CLAVULANATE POTASSIUM 875 MG TABLET PO SCH (21:39)
[2019-08-26] VITALS: BP_SYST 124
[2019-08-26] MEDS: NACL 0.9% 1,000 ML IV SCH (01:34)
[2019-08-26] MEDS: metroNIDAZOLE 500 MG TABLET PO SCH (06:36)
[2019-08-26 07:27] LABS: ALBUMIN 2.3 g/dL (3.4-4.8); CALCIUM 7.6 mg/dL (8.4-11.0); CREATININE 1.23 mg/dL (0.55-1.30); POTASSIUM 3.8 mmol/L (3.5-5.1); THYROID STIMULATING HORMONE 6.18 uIu/mL (0.36-3.74); TOTAL BILIRUBIN 0.6 mg/dL (0.0-1.0)
[2019-08-26 07:30] VITALS: BP_SYST 138
[2019-08-26 07:46] LABS: BASOPHILS # (AUTO) 0.1 K/uL (0.0-0.2); BASOPHILS % (AUTO) 0.8 % (0.0-2.0); EOSINOPHILS # (AUTO) 0.4 K/uL (0.0-0.4); EOSINOPHILS % (AUTO) 4.1 % (0.0-4.0); HEMATOCRIT 40.7 % (36-54); HEMOGLOBIN 13.3 g/dL (14.0-18.0); LYMPHOCYTES # (AUTO) 2.4 K/uL (1.0-5.5); LYMPHOCYTES % (AUTO) 24.5 % (20.5-51.5); MEAN CORPUSCULAR HEMOGLOBIN 28 pg (27-31); MEAN CORPUSCULAR HGB CONC 33 % (32-36); MEAN CORPUSCULAR VOLUME 85 fL (79.0-98.0); MONOCYTES # (AUTO) 0.9 K/uL (0.0-1.0); MONOCYTES % (AUTO) 9.6 % (1.7-9.3); NEUTROPHILS # (AUTO) 5.9 K/uL (1.8-7.7); PLATELET COUNT (AUTO) 207 K/uL (130-430); RED BLOOD CELL COUNT(AUTO) 4.81 MIL/uL (4.2-6.2); RED CELL DISTRIBUTION WIDTH 14.3 % (9.0-15.0)
[2019-08-26] MEDS: AMOXICILLIN/CLAVULANATE POTASSIUM 875 MG TABLET PO SCH (07:57)
[2019-08-26] MEDS: CARVEDILOL 6.25 MG TABLET (COREG) PO SCH (07:58)
[2019-08-26 08:30] LABS: WHITE BLOOD COUNT (AUTO) 9.8 K/uL (4.8-10.8)
[2019-08-26] MEDS ORDERED: ASPIRIN 81 MG TAB.CHEW PO SCH (09:00)
[2019-08-26] MEDS ORDERED: RIVAROXABAN 15 MG TABLET PO ONE (09:30)
[2019-08-26 11:30] VITALS: BP_SYST 120
[2019-08-26 12:00] VITALS: BP_SYST 120
[2019-08-26] MEDS ORDERED: RIVAROXABAN 15 MG TABLET PO SCH (18:00)
== END 2019-08-26 12:35 | disposition home or self-care (01) | DRG 134 ==
LOC: SED 20:30 → STU 08-25 00:20
PROVIDERS: ADMIT Internal Medicine Hospice and Palliative Medicine; ATTEND Internal Medicine Hospice and Palliative Medicine
DX: I26.99 Other pulmonary embolism without acute cor pulmonale (principal); I21.A1 Myocardial infarction type 2; E43 Unspecified severe protein-calorie malnutrition; E66.01 Morbid (severe) obesity due to excess calories; Z68.41 Body mass index [BMI] 40.0-44.9, adult; I12.9 Hypertensive chronic kidney disease with stage 1 through stage 4 chronic kidney disease, or unspecified chronic kidney disease; N18.2 Chronic kidney disease, stage 2 (mild); Z79.899 Other long term (current) drug therapy
CPT/HCPCS: 36415; 36600; 71045; 71275; 80053; 80061; 82803-TC; 83605; 83880; 84443-TC; 84484; 85025; 85379; 85610-TC; 85730-TC; 87040-TC; 87081; 93005; 93306; 93971; 96372; 99285; G0378; J1650; J7030; J7040; Q9967